=== PATIENT | female | born 1950 | race Caucasian/White ===

== ENCOUNTER → 2019-03-04 15:07 | Outpatient (CLI) | payer OTHER, SELFPAY ==
--- NOTE | 2019-03-04 | DI.RAD.S_ITS ---
PROCEDURE: XR FOOT LT MIN 3V INDICATIONS: LEFT FOOT PAIN TECHNIQUE: 3 views of the foot were acquired. COMPARISON: [facility], , FOOT 3V LEFT, 12/14/2015, 12:06. FINDINGS: Bones: No fractures or dislocations. No suspicious bony lesions. First MTP joint osteoarthritis is prominent as was previously the case. Soft tissues: No tibiotalar joint effusion. Achilles tendon appears normal. 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 No acute trauma found. Dictated by: Jamari Wells M.D. on 03/04/2019 at 15:32 Approved by: Jamari Wells M.D. on 03/04/2019 at 15:33
== END ==
LOC: RAD 15:09
PROVIDERS: Family Provider Internal Medicine; PCP Internal Medicine; Visit Provider Internal Medicine
DX: M79.672 Pain in left foot (principal); M19.072 Primary osteoarthritis, left ankle and foot
CPT/HCPCS: 73630

== ENCOUNTER → 2019-10-02 12:18 | Outpatient (CLI) | payer MEDICARE, OTHER, SELFPAY ==
--- NOTE | 2019-10-02 | DI.MG.S_ITS ---
BILATERAL DIGITAL SCREENING MAMMOGRAM 3D/2D WITH CAD: 10/02/2019 CLINICAL: Routine screening. Comparison is made to exams dated: 07/10/2015 mammogram, 10/18/2013 mammogram - [facility], and 02/13/2009 mammogram - [facility]. The tissue of both breasts is heterogeneously dense. This may lower the sensitivity of mammography. Current study was also evaluated with a Computer Aided Detection (CAD) system. There is a new 1.2 cm oval equal density focal asymmetry with an obscured margin in the right breast at 2 o'clock middle depth. No other significant masses, calcifications, or other findings are seen in either breast. IMPRESSION: INCOMPLETE: NEEDS ADDITIONAL IMAGING EVALUATION The new 1.2 cm oval equal density focal asymmetry in the right breast resembles a cyst but remains indeterminate. Additional views with possible ultrasound are recommended. This exam was interpreted at Station ID: [id number]. NOTE: For mammograms, a report in lay terms will be sent to the patient. Approximately 15% of breast malignancies will not be visualized mammographically. In the management of a palpable breast mass, a negative mammogram must not discourage biopsy of a clinically suspicious lesion. Electronically Signed By: Chao Fagan M.D. aty/:10/02/2019 13:03:14 letter sent: Additional Imaging Needed ACR BI-RADS Category 0: Incomplete 3340F
== END ==
PROVIDERS: PCP Internal Medicine; Visit Provider Internal Medicine
DX: Z12.31 Encounter for screening mammogram for malignant neoplasm of breast (principal)
CPT/HCPCS: 77063; 77067

== ENCOUNTER → 2019-10-24 14:21 | Outpatient (CLI) | payer MEDICARE, OTHER, SELFPAY ==
--- NOTE | 2019-10-24 | DI.US.S_ITS ---
LIMITED ULTRASOUND OF RIGHT BREAST: 10/24/2019 CLINICAL: Additional evaluation requested from prior study. Comparison is made to exams dated: 10/24/2019 mammogram, 10/02/2019 mammogram, 07/10/2015 mammogram, 07/10/2015 mammogram, 10/23/2013 mammogram, and 10/18/2013 mammogram - [facility]. Color flow and real-time ultrasound of the right breast 12-3 o'clock region were performed. Sterling scale images of the real-time examination were reviewed. There is a 1.4 x 1.2 x 1.0 cm oval circumscribed hypoechoic cyst with low level internal echogenic foci, posterior acoustic enhancement, and no vascularity in the right breast at 2:00 position 3 cm from the nipple. This appears to correlate with the findings seen on comparison mammography. There is a 0.9 x 0.9 x 0.6 cm oval circumscribed hypoechoic cyst with low level internal echogenic foci, posterior acoustic enhancement, and no vascularity in the right breast at 1:00 position 3 cm from the nipple. This appears to correlate with the findings seen on comparison mammography. IMPRESSION: PROBABLY BENIGN 1) 1.4 cm probable complicated cyst in the right breast at 2:00 position 3 cm from the nipple is probably benign and appears to correlate with findings seen on mammography. A follow-up mammogram and an ultrasound in 6 months is recommended to demonstrate stability. The patient is advised to monitor her breasts and to return sooner for re-evaluation should she feel anything grow or change. 2) 0.9 cm probable complicated cyst in the right breast at 1:00 position 3 cm from the nipple is probably benign and appears to correlate with findings seen on mammography. A follow-up mammogram and an ultrasound in 6 months is recommended to demonstrate stability. The patient is advised to monitor her breasts and to return sooner for re-evaluation should she feel anything grow or change. 3) A follow-up diagnostic mammogram in 6 months remains recommended to demonstrate stability of the calcifications in the superior right breast at anterior to middle depth seen on comparison diagnostic mammography of 10/24/19 performed immediately prior to this exam. This exam was interpreted at Station ID: [id number]. Electronically Signed By: Jean Mary M.D. ecl/:10/24/2019 19:41:01 letter sent: Followup Recommended Ultrasound BI-RADS: 3 Probably benign
--- NOTE | 2019-10-24 | DI.MG.S_ITS ---
UNILATERAL RIGHT DIGITAL DIAGNOSTIC MAMMOGRAM 3D/2D WITH ADDITIONAL VIEWS: 10/24/2019 CLINICAL: Additional evaluation requested from prior study. Comparison is made to exams dated: 10/02/2019 mammogram, 07/10/2015 mammogram, and 10/23/2013 mammogram - [facility]. The tissue of right breast is heterogeneously dense. This may lower the sensitivity of mammography. Previously identified approximately 1.2 cm oval equal density focal asymmetry with an obscured margin in the superior medial right breast (described as being near 2 o'clock middle depth on comparison screening mammogram 10/02/19) persists on additional views. There are smaller adacent oval circumscribed focal asymmetries adjacent this approximately 1.2 cm focal asymmetry. Vascular calcifications are present in the right breast. There are also calcifications in the superior right breast at anterior to middle depth that are best seen on lateral view that demonstrate apparent layering on lateral views most consistent with milk of calcium calcifications. IMPRESSION: INCOMPLETE: NEEDS ADDITIONAL IMAGING EVALUATION Previously identified oval equal density focal asymmetry with an obscured margin in the superior medial right breast (described as being near 2 o'clock middle depth on comparison screening mammogram 10/02/19) persists on additional views. A targeted ultrasound is recommended for further evaluation. Calcifications in the superior right breast at anterior to middle depth that are best seen on lateral view appear to demonstrate apparent layering on lateral views most consistent with milk of calcium calcifications and are probably benign. A follow-up diagnostic mammogram in 6 months to demonstrate stability is recommended. This exam was interpreted at Station ID: [id number]. NOTE: For mammograms, a report in lay terms will be sent to the patient. Approximately 15% of breast malignancies will not be visualized mammographically. In the management of a palpable breast mass, a negative mammogram must not discourage biopsy of a clinically suspicious lesion. Electronically Signed By: Jean Mary M.D. ecl/:10/24/2019 14:59:27 ACR BI-RADS Category 0: Incomplete 3340F
== END ==
PROVIDERS: PCP Internal Medicine; Visit Provider Internal Medicine
DX: R92.8 Other abnormal and inconclusive findings on diagnostic imaging of breast (principal); R92.1 Mammographic calcification found on diagnostic imaging of breast; N60.01 Solitary cyst of right breast
CPT/HCPCS: 76642; 77065; G0279